=== PATIENT | female | born 1975 | race African-American/Black ===

== ENCOUNTER → 2016-03-08 | Outpatient (CLI) | payer OTHER ==
[~2016-03-08] VITALS: Ht 158.8 cm; Wt 109.5 kg
[~2016-03-08] MED LIST: BIOFREEZE 0.2%-1 GE1 TOP; FLEXERIL5 MG PO; MOTRIN 800800 MG/TAB PO; MUCINEX 60600 MG/TA1 PO; NEXIUM 40MG40 MG PO; SAVELLA12.5 MG; VOLTAREN GEL 1%1 TU TP
[2016-03-08 15:26] VITALS: BP 127/69; PULSE 89
[2016-03-08 16:59] VITALS: BP 127/69; PULSE 89
== END ==
LOC: LIGHT 10:59
DX: J45.998 Other asthma (principal); M54.5 Low back pain; E66.01 Morbid (severe) obesity due to excess calories; Z68.41 Body mass index [BMI] 40.0-44.9, adult

== ENCOUNTER 2018-07-02 13:49 | Emergency (ER) | payer OTHER ==
[~2018-07-02] VITALS: Ht 160 cm; Wt 85.9 kg
[2018-07-02 13:53] VITALS: BP 129/75; TEMP 98.5
[2018-07-02 14:11] LABS: STREP SCREEN NEGATIVE
[2018-07-02 14:42] VITALS: PULSE 81
== END 2018-07-02 14:52 | disposition home or self-care (01) ==
LOC: COL.ER 13:49
PROVIDERS: Nurse Practitioner
DX: J02.9 Acute pharyngitis, unspecified (principal); M79.7 Fibromyalgia; Z90.49 Acquired absence of other specified parts of digestive tract; Z90.710 Acquired absence of both cervix and uterus